=== PATIENT | male | born 1975 | race Caucasian/White ===

== ENCOUNTER 2024-03-29 07:35 | Emergency (ER) | payer OTHER ==
[~2024-03-29] VITALS: Ht 188 cm; Wt 77.1 kg
[2024-03-29] MEDS ORDERED: DIAZ5TAB PO (08:49)
[2024-03-29 08:59] VITALS: BP 108/88; TEMP 98.8; O2SAT 99
== END 2024-03-29 09:00 | disposition home or self-care (01) ==
LOC: ER 07:35
DX: F41.9 Anxiety disorder, unspecified (principal); Z79.899 Other long term (current) drug therapy; Z91.018 Allergy to other foods
CPT/HCPCS: A4606; A4663

== ENCOUNTER 2024-04-10 14:21 | Inpatient (IN) | payer OTHER ==
[~2024-04-10] VITALS: Ht 177.8 cm; Wt 78.9 kg
[~2024-04-10 14:21] MED LIST: DIAZ5TAB PO
[2024-04-10] MEDS: IV NORMAL SALINE 1000 ML BAG IV ONE (15:15)
[2024-04-10 15:20] LABS: BASOPHILS % (AUTO) 0.5 % (0.0-2.0); EOSINOPHILS # (AUTO) 0.1 K/uL (0.0-0.7); HEMATOCRIT 44.9 % (36.7-47.1); HEMOGLOBIN 15.1 g/dL (12.5-16.3); LYMPHOCYTES # (AUTO) 1.2 K/uL (0.8-4.8); LYMPHOCYTES % (AUTO) 18.1 % (20.5-51.5); MEAN CORPUSCULAR HEMOGLOBIN 31.9 uug (23.8-33.4); MEAN CORPUSCULAR HGB CONC 34 g/dL (32.5-36.3); MONOCYTES # (AUTO) 0.4 K/uL (0.1-1.30); MONOCYTES % (AUTO) 6.7 % (0.0-11.0); NEUTROPHILS # (AUTO) 4.8 K/uL (1.8-8.9); NEUTROPHILS % (AUTO) 73.7 % (38.5-71.5); PLATELET COUNT (AUTO) 218 K/uL (152-348); RED BLOOD CELL COUNT(AUTO) 4.73 MIL/uL (4.06-5.63); RED CELL DISTRIBUTION WIDTH 13.3 % (12.1-16.2); WHITE BLOOD COUNT (AUTO) 6.5 K/uL (3.6-10.2)
[2024-04-10 15:21] LABS: DIFFERENTIAL COMMENT 1
[2024-04-10 15:30] LABS: CALCIUM 9.5 mg/dL (8.5-10.1); MAGNESIUM 2.4 mg/dL (1.8-2.4)
[2024-04-10 15:36] LABS: ALBUMIN 4.1 g/dL (3.4-5.0); BILIRUBIN,DIRECT 0.1 mg/dL (0.0-0.2); BILIRUBIN,TOTAL 0.4 mg/dL (0.2-1.0); CALCIUM 9.7 mg/dL (8.5-10.1); POTASSIUM 3.9 mmol/L (3.5-5.1); TOTAL PROTEIN, SERUM 7.4 g/dL (6.4-8.2)
[2024-04-10] MEDS ORDERED: DIAZ5TAB4 PO (17:20)
[2024-04-10] MEDS ORDERED: METO25TA6 PO (17:20)
[2024-04-10 17:29] LABS: *CHLORIDE RNDM,URINE 137 mmol/L (100-250); *POTASSIUM RNDM,URINE 73 mmol/L (25-125); *SODIUM RNDM,URINE 93 mmol/L (40-220)
[2024-04-10] MEDS ORDERED: DIAZEPAM 2 MG TABLET ONE (19:39)
[2024-04-10] MEDS: DIAZEPAM 2 MG TABLET PO ONE (19:41)
[2024-04-10 19:56] LABS: *BILIRUBIN,URIN NEGATIVE (NEGATIVE); *BLOOD, URINE NEGATIVE (NEGATIVE); *CLARITY,URINE CLEAR (CLEAR); *COLOR,URINE YELLOW (YELLOW); *KETONES,URINE NEGATIVE (NEGATIVE); *PROTEIN,URINE NEGATIVE (NEGATIVE); *UROBILINOGEN,URINE 0.2 E.U./dl (NORMAL); LEUKOCYTE ESTERASE ,URINE NEGATIVE (NEGATIVE); NITRITE, URINE NEGATIVE (NEGATIVE); UGLUCOSE NEGATIVE (NEGATIVE)
[2024-04-10] MEDS ORDERED: METOPROLOL TARTRATE 25 MG TABLET PO PRN (21:00)
[2024-04-10] MEDS ORDERED: ONDANSETRON 4 MG/2 ML VIAL IV PRN (21:00)
[2024-04-10] MEDS ORDERED: METHOCARBAMOL 500 MG TABLET PO PRN (21:15)
[2024-04-10] MEDS ORDERED: DIAZEPAM 2 MG TABLET PO PRN (21:45)
[2024-04-10] MEDS: IV LACTATED RINGERS SOLUTION 1,000 ML IV PRN (21:52)
[2024-04-10 22:55] VITALS: BP 134/84; TEMP 97.9; O2SAT 96
[2024-04-10] MEDS: MELATONIN 3 MG TABLET PO PRN (23:13)
[2024-04-10 23:58] VITALS: BP 126/80; TEMP 98; O2SAT 96
[2024-04-11 04:07] VITALS: BP 117/71; TEMP 98; O2SAT 97
[2024-04-11] MEDS: PANTOPRAZOLE SODIUM 40 MG TABLET.DR PO SCH (06:19)
[2024-04-11 06:27] LABS: BASOPHILS # (AUTO) 0.1 K/UL (0.0-0.2); EOSINOPHILS # (AUTO) 0.2 K/uL (0.0-0.7); EOSINOPHILS % (AUTO) 3.5 % (0.0-7.0); HEMOGLOBIN 14.7 g/dL (12.5-16.3); LYMPHOCYTES # (AUTO) 1.5 K/uL (0.8-4.8); LYMPHOCYTES % (AUTO) 24.7 % (20.5-51.5); MEAN CORPUSCULAR HEMOGLOBIN 33.1 uug (23.8-33.4); MEAN CORPUSCULAR HGB CONC 35 g/dL (32.5-36.3); MEAN CORPUSCULAR VOLUME 94.7 fL (73.0-96.2); MONOCYTES # (AUTO) 0.5 K/uL (0.1-1.30); MONOCYTES % (AUTO) 8.7 % (0.0-11.0); NEUTROPHILS # (AUTO) 3.8 K/uL (1.8-8.9); NEUTROPHILS % (AUTO) 62.1 % (38.5-71.5); PLATELET COUNT (AUTO) 201 K/uL (152-348); RED BLOOD CELL COUNT(AUTO) 4.44 MIL/uL (4.06-5.63); RED CELL DISTRIBUTION WIDTH 13.4 % (12.1-16.2); WHITE BLOOD COUNT (AUTO) 6.1 K/uL (3.6-10.2)
[2024-04-11 07:05] LABS: CALCIUM 9.1 mg/dL (8.5-10.1); CREATININE 1.2 mg/dL (0.6-1.3); MAGNESIUM 1.9 mg/dL (1.8-2.4); PHOSPHOROUS 3.2 mg/dL (2.5-4.9); POTASSIUM 4.1 mmol/L (3.5-5.1)
[2024-04-11 07:18] VITALS: BP 111/53; TEMP 97.9; O2SAT 96
[2024-04-11 07:19] LABS: THYROID STIMULATING HORMONE 1.526 mIU/mL (0.358-3.740)
[2024-04-11] MEDS: ACETAMINOPHEN 325 MG TABLET PO PRN (08:29)
[2024-04-11 11:34] VITALS: BP 152/86; TEMP 98.4; O2SAT 96
== END 2024-04-11 15:30 | disposition home or self-care (01) | DRG 207 ==
LOC: ER 14:21 → MEDSURG3 21:17 → TELE3 21:56
PROVIDERS: ADMIT Nurse Practitioner Family; ATTEND Internal Medicine
DX: R00.2 Palpitations (principal); E78.5 Hyperlipidemia, unspecified; F41.9 Anxiety disorder, unspecified; R25.2 Cramp and spasm; R79.89 Other specified abnormal findings of blood chemistry; Z91.018 Allergy to other foods; F39 Unspecified mood [affective] disorder; R03.0 Elevated blood-pressure reading, without diagnosis of hypertension; R94.4 Abnormal results of kidney function studies; Z66 Do not resuscitate
CPT/HCPCS: 36415; 83605; 83735; 84100; 84133; 84300; 84443; 84484; 85025; 93307; A4606; A4663; G0378; J7040; J7120